=== PATIENT | female | born 1995 | race Caucasian/White ===

== ENCOUNTER 2017-01-14 04:42 | Emergency (ER) | payer MEDICAID ==
[~2017-01-14] VITALS: Ht 167.6 cm; Wt 52.0 kg
[~2017-01-14 04:42] MED LIST: CIPR500T4 PO; DOXY100T20 PO; ERYT1OIN6 RIGHT EYE; HC1C30 TOP; IBUP-1542 PO; PRED20TA PO; [UNRECOGNIZED DRUG - CODE] PO
[2017-01-14 04:46] VITALS: Ht 167.6 cm; Wt 52.0 kg
[2017-01-14] MEDS ORDERED: CLOT21CR6 VAGINAL (05:29)
--- NOTE | 2017-01-14 05:29 | ERD ---
ER Documentation Chief Complaint Date/Time DATE: 01/14/17 TIME: 05:25 Chief Complaint vaginal discharge for 2 days HPI 21-year-old female presents here in emergency department for complaints of vaginal discharge for the last 2 days. Noticed it to be yellowish and whitishm curdlike like structure, is complaining of itching. Patient's partner is also the same symptoms. Patient denies any abdominal pain, flank pain. Patient denies any fever or chills. Patient denies any hematuria or dysuria. ROS All systems reviewed and are negative except as per history of present illness. Medications Home Meds Active Scripts Ibuprofen* (Motrin*) 600 Mg Tab, 600 MG PO Q6, #30 TAB Prov:KRISH ALCOCER 02/22/15 Doxycycline Hyclate* (Doxycycline Hyclate*) 100 Mg Tablet.dr, 100 MG PO BID for 10 Days, TAB Prov:KRISH ALCOCER 02/22/15 Hydrocortisone* Topical (Hydrocortisone* Topical) 1%-28.35 Gm Cream..g., 1 APPLIC TOP Q6 Y for ITCHING, #1 TUB Prov:MEENAKSHI REVELES 01/29/15 Ciprofloxacin Hcl* (Ciprofloxacin Hcl*) 500 Mg Tablet, 500 MG PO BID for 5 Days , TAB Prov:MEENAKSHI REVELES 01/29/15 Prednisone* (Prednisone*) 20 Mg Tab, 40 MG PO DAILY for 4 Days, TAB Prov:MEENAKSHI REVELES 01/29/15 Erythromycin (Erythromycin Opth) 3.5 Gm Oint..gm., 1 APPLIC RIGHT EYE QID for 7 Days, EA Prov:HUBER LEIGH 01/09/15 Ciprofloxacin Hcl* (Ciprofloxacin Hcl*) 500 Mg Tablet, 500 MG PO BID for 3 Days , TAB Prov:SANDOVAL ALATORRE PA-C 01/05/15 Levonorgestrel* (PLAN B*) 0.75 Mg Tab, 0.75 MG PO DAILY, #1 TAB Prov:ESTHELA PATRICK PA-C 01/02/15 Allergies Allergies: Coded Allergies: penicillin (Verified Allergy, Intermediate, RASH, MALAISE, 01/29/15) PMhx/Soc Medical and Surgical Hx: pt denies Medical Hx, pt denies Surgical Hx History of Surgery: No Anesthesia Reaction: No Hx Neurological Disorder: No Hx Respiratory Disorders: No Hx Cardiac Disorders: No Hx Psychiatric Problems: No Hx Miscellaneous Medical Probl: No Hx Alcohol Use: No Hx Substance Use: No Hx Tobacco Use: No FmHx Family History: No coronary disease, No diabetes, No other Physical Exam Vitals Vital Signs Date Time Temp Pulse Resp B/P Pulse Ox O2 Delivery O2 Flow Rate FiO2 01/14/17 04:46 98.7 69 16 112/58 100 Physical Exam GENERAL: The patient is well developed and appropriate for usual state of health, in no apparent distress. CHEST: Clear to auscultation bilaterally. There are no rales, wheezes or rhonchi. HEART: Regular rate and rhythm. No murmurs, clicks, rubs or gallops. No S3 or S4. ABDOMEN: Soft, nontender and nondistended. Good bowel sounds. No rebound or guarding. No gross peritonitis. No gross organomegaly or masses. No Salas sign or McBurney point tenderness. BACK: No midline or flank tenderness. EXTREMITIES: Equal pulses bilaterally. There is no peripheral clubbing, cyanosis or edema. No focal swelling or erythema. Full range of motion. Grossly neurovascularly intact. NEURO: Alert and oriented. Cranial nerves 2-12 intact. Motor strength in all 4 extremities with 5/5 strength. Sensation grossly intact. Normal speech and gait. SKIN: There is no apparent rash or petechia. The skin is warm and dry. HEMATOLOGIC AND LYMPHATIC: There is no evidence of excessive bruising or lymphedema. No gross cervical, axillary, or inguinal lymphadenopathy. Vaginal: Noted whitish vaginal discharge, no cervical motion tenderness or adnexal tenderness noted. Results 24 hrs Current Medications Medications (Trade) Dose Ordered Sig/Rangel Route PRN Reason Start Time Stop Time Status Last Admin Dose Admin Ceftriaxone Sodium (Rocephin) 250 mg ONCE ONCE IM 01/14/17 05:30 01/14/17 05:31 Azithromycin (Zithromax) 1,000 mg ONCE ONCE PO 01/14/17 05:30 01/14/17 05:31 Azithromycin and Rocephin was given here in emergency department for treatment of itching I discussed with possibly STD. Procedures/MDM Medical decision making: Patient symptoms most likely is consistent with vaginitis, most likely STD related, can be also Radha. Patient was given IM Rocephin and azithromycin here in emergency department for treatment for STD vaginitis, patient will be given clotrimazole 1% vaginal suppository for possible Radha infection. At this time, no symptoms of PID. No symptoms of any other emergencies. Patient is not . Patient was advised to do safe sex practices, avoid having sex for at least 1 week after treatment. Patient is advised to return to emergency department for any worsening symptoms. Disposition: Home. Stable Departure Diagnosis: Primary Impression: Vaginitis Chronicity: acute Qualified Code: N76.0 - Acute vaginitis Condition: Stable Patient Instructions: Std, Suspected (Culture Only), Vaginitis, Radha CHARLIE,MAURICIO Elizabeth NP Jan 14, 2017 05:29
[2017-01-14] MEDS ORDERED: AZITHROMYCIN 250 MG TAB PO ONE (05:30)
[2017-01-14] MEDS ORDERED: CEFTRIAXONE 250 MG INJ IM ONE (05:30)
== END 2017-01-14 06:30 | disposition home or self-care (01) ==
LOC: FTE 04:42
DX: N76.0 Acute vaginitis (principal)
CPT/HCPCS: 87591; 96372; J0696; Z7502; Z7610